=== PATIENT | male | born 1960 ===

== ENCOUNTER 2025-02-03 02:37 | Outpatient (CLI) | payer OTHER, SELFPAY ==
--- NOTE | 2025-02-03 | DI.RAD_ITS ---
Exam(s) XR CHEST 2V PA LATERAL EXAM: XR CHEST 2V PA LATERAL CLINICAL HISTORY: Emphysema, 98.3 TECHNIQUE: 2D digital imaging was performed. Two views. COMPARISON: No exams were available for comparison FINDINGS: HEART: Normal size. Aorta: Tortuous. PULMONARY VASCULATURE: Normal. MEDIASTINUM: Unremarkable. LUNGS: Clear. PLEURAL SPACE: No pleural effusion or pneumothorax. BONE:Unremarkable for age. SOFT TISSUES: Unremarkable left diaphragm mildly elevated. IMPRESSION: No acute abnormality. DATA REPOSITORY: RADIATION DOSE DELIVERED:
[2025-02-03] MEDS: Inhaler, Assist Device 1 EACH MC (10:58)
[2025-02-03] MEDS: Levalbuterol HFA 15 GM INH 4 PUFF IH (10:59)
--- NOTE | 2025-02-03 15:23 | W.PFT ---
Date of service: 02/03/25 Time of Service: 09:58 Pulmonary Function Test Result Indications: Emphysema Interpretation Spirometry: There is moderate airflow limitation. No significant bronchodilator response. Impression Moderate obstruction. Clinical Correlation therefore is recommended.
== END 2025-02-03 02:38 | disposition home or self-care (01) ==
PROVIDERS: Visit Provider Student in an Organized Health Care Education/Training Program
DX: J98.3 Compensatory emphysema (principal)
CPT/HCPCS: 94060; 71046